=== PATIENT | male | born 1960 | race Caucasian/White ===

== ENCOUNTER 2024-03-07 13:32 | Emergency (ER) | payer OTHER, BC, SELFPAY ==
[2024-03-07 13:33] VITALS: BMI 25.7
[2024-03-07 14:05] VITALS: BP 135/90; PULSE 85; RESP 18; TEMP 36.6; O2SAT 97
--- NOTE | 2024-03-07 14:11 | XR_ITS ---
Examination: Lumbar spine 3 views Technique one AP lateral coned lateral lower lumbar spine 3 views Exam date and time: March 07, 2024 1424 hours INDICATIONS: Low back pain beginning 2 weeks ago. FINDINGS: Adequate alignment lumbar vertebral bodies No lumbar fracture Moderate disc narrowing L3-L4, advanced disc narrowing L4-L5, L5-S1 IMPRESSION: Advanced degenerative disc disease L4-L5, L5-S1
--- NOTE | 2024-03-07 14:12 | EDNOTE_ITS ---
ED Back Injury Pain RME/HPI General Chief Complaint: Back Pain/Injury Stated Complaint: Back pain 10/10 x 1 week Time Seen by Provider: 03/07/24 13:58 Arrival date/time: 03/07/24 13:32 RME / HPI RME / HPI Narrative: 64-year-old male patient regarding low back pain. Said ongoing for the last 1 week, described as sharp pain, severity 10 out of 10 worse with sudden positional change. Patient denies any dysuria denies any fever denies any trauma denies any fall. Denies any saddle anesthesia. Denies any urinary incontinence denies any bowel incontinence. The showed me her urinalysis results and worried that patient is also having Shigella. She wanted me to look at her urinalysis when she was here last January. No medication was taken prior to arrival. Related Data Previous Rx's ?Medication ?Instructions ?Recorded diphenhydramine HCl 25 mg capsule 25 mg PO QID PRN itching #20 caps 07/14/19 (Benadryl) epinephrine 0.3 mg/0.3 mL 0.3 ml subcut .once PRN 07/14/19 injection, auto-injector hypersensitivity reaction #2 ea famotidine 20 mg tablet 20 mg PO BID #10 tabs 07/14/19 prednisone 50 mg tablet 60 mg (1.2 x 50 mg) PO QDAY #5 tabs 07/14/19 ibuprofen 800 mg tablet 800 mg PO TID PRN pain #30 tabs 03/07/24 methocarbamol 750 mg tablet 750 mg PO TID PRN pain #30 tabs 03/07/24 Allergies Allergy/AdvReac Type Severity Reaction Status Date / Time bee venom protein (honey bee) Allergy Severe Anaphylaxis Verified 08/06/21 11:12 Review of Systems Review of Systems Narrative Review of Systems: Review of system reviewed and within normal limits except mentioned in HPI ED Exam Narrative Physical exam: VITAL SIGNS: Reviewed. GENERAL APPEARANCE: Alert and interactive, follows commands, no acute distress, HEAD AND FACE: Non-traumatic. ENT: PERRL, pink conjunctivitis, eyelid no trauma, Mucous membrane moist. NECK: Supple, nontender, no nuchal rigidity. CHEST: No tenderness, no crepitus, no paradoxical movement, no retractions. LUNGS: Clear, well ventilated, symmetric, no rales, no wheezing, no ronchi, no stridor, good breath sounds bilaterally. HEART: Regular rate, regular rhythm, no murmur, no gallops. ABDOMEN: Soft, positive bowel sounds, nondistended, no guarding, nontender, no rebound, no masses, RECTAL: Deferred. GENITAL: Deferred. NEUROLOGICAL: Gross motor function intact sensory function intact, Appropriate for age. MUSCULOSKELETAL: low back tenderness, full range of motion. EXTREMITIES: Nontender, full range of motion. SKIN: Color pink, dry, no rash, no lacerations, no abrasions, no contusions. LYMPHATICS: Deferred. Course Quality Measures none Orders Category Date Time Status XR lumbar spine 2-3V Stat Exams 03/07/24 14:11 Completed UA, C/S IF [Urinalysis, C/S if Indicated] Stat Lab 03/07/24 14:56 Completed Ketorolac Inj [Toradol Inj] Med 03/07/24 14:11 Discontinued 30 mg IM X1 ONE methocarbamoL [Robaxin] Med 03/07/24 14:11 Discontinued 500 mg PO X1 ONE Vital Signs Vital signs: Vital Signs Temperature 98 F 03/07/24 14:05 Pulse Rate 85 03/07/24 14:05 Respiratory Rate 18 03/07/24 14:05 Blood Pressure 135/90 H 03/07/24 14:05 Pulse Oximetry (%) 97 03/07/24 14:05 Oxygen Delivery Method Room Air 03/07/24 14:05 Back Pain / Injury MDM Narrative MDM Narrative:: 64-year-old male patient regarding low back pain. Said ongoing for the last 1 week, described as sharp pain, severity 10 out of 10 worse with sudden p ositional change. Patient denies any dysuria denies any fever denies any trauma denies any fall. Denies any saddle anesthesia. Denies any urinary incontinence denies any bowel incontinence. The showed me her urinalysis results and worried that patient is also having Shigella. She wanted me to look at her urinalysis when she was here last January. No medication was taken prior to arrival. Urinalysis no UTI. X-ray of the lumbar spine, came back with degenerative disc disease of the lumbar spine otherwise unremarkable. Results discussed with the patient and family. Patient was given Toradol and Robaxin with good relief of pain. Patient appears nontoxic and hemodynamically stable. Patient discharged home and instructed to follow-up with primary care provider in 24 to 48 hours and asked for referral to spine surgeon. Instructed to return to the emergency department immediately if worsening of symptoms Patient data External records reviewed:: None Clinical information provided by:: none Social determinants that could affect healthcare access:: none Patient has the following chronic illnesses:: None How is presenting disease/condition affected by chronic disease/condition?: no chronic disease Evaluation data The following diagnostics were reviewed and interpreted by me:: lab results and radiology exam(s) Lab and/or radiology exams considered but not ordered:: None Interpretation Summary: X-ray of the lumbar spine showed degenerative disc disease of the lumbar spine, urinalysis no UTI. Medications / Prescriptions Medications or Prescriptions considered but not ordered:: None Medication administrations:: Medication Administration History Discontinued Medications Ketorolac Tromethamine (Ketorolac Inj 60 Mg/2 Ml Vial) 30 mg IM X1 ONE Stop: 03/07/24 14:12 Last Admin: 03/07/24 15:04 Dose: 30 mg Documented By: Methocarbamol (Methocarbamol 500 Mg Tablet) 500 mg PO X1 ONE Stop: 03/07/24 14:12 Last Admin: 03/07/24 15:04 Dose: 500 mg Documented By: Toradol and Robaxin Consultations Consultation(s) initiated? (list below): No Diagnosis Differential diagnosis back pain/injury: sciatica and other (Low back pain, degenerative disease lumbar spine) Most likely diagnosis given after review of the tests above:: Degenerative disease lumbar spine Admission Indicated Admission indicated?: not indicated Explain why admission is indicated or not indicated:: None Admission Request Was there a request for admission?: No Disposition Plan Disposition Plan: Discharge Discharge Attestation Discharge Attestation: The patient and all family members were given an opportunity to ask questions and understood the discharge instructions. Discharge instructions specifically effects, indications for sooner follow up or return to the emergency department, and the expected course of current diagnosis. Patient condition: Stable Discharge Plan Plan Patient Disposition: HOME (Self Care) Disposition Comment: Stable Prescriptions/Referrals Prescriptions/Med Rec: New ibuprofen 800 mg tablet 800 mg PO TID PRN (Reason: pain) Qty: 30 0RF methocarbamol 750 mg tablet 750 mg PO TID PRN (Reason: pain) Qty: 30 0RF No Action prednisone 50 mg tablet 60 mg PO QDAY Qty: 5 0RF famotidine 20 mg tablet 20 mg PO BID Qty: 10 0RF epinephrine 0.3 mg/0.3 mL auto-injector 0.3 ml SC .once PRN (Reason: hypersensitivity reaction) Qty: 2 1RF Rx Instructions: As directed diphenhydramine HCl [Benadryl] 25 mg capsule 25 mg PO QID PRN (Reason: itching) Qty: 20 0RF Rx Instructions: No swimming, alcohol, or mechanical use while on Benadryl. 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 You are stable for discharged . You are advised to: Follow-up with your PCP in 1 to 2 days and asked for referral to spine surgeon Return to ED for worsening of symptoms Increase oral fluids Take medication as prescribed Print Language: Salvadorean Stand Alone Forms: Silvia Award Info., Patient Portal Info Letter PA/[employer] Supervising Physician JAMES/ANTWAN Supervising Physician: MD Gloria
[2024-03-07] MEDS: methocarbamoL 500 MG TABLET PO (15:04)
[2024-03-07] MEDS: KETOROLAC INJ 60 MG/2 ML VIAL 30 MG IM (15:04)
[2024-03-07 15:12] LABS: Collection Type, Urine Clean Catch
[2024-03-07 15:22] LABS: Bilirubin,Urine Negative (Negative); Blood,Urine Negative (Negative); Clarity,Urine Clear (Clear/Hazy); Color,Urine Yellow (Lt Yel-Yel); Culture Indicated,Urine Not Indicated; Glucose, Urine Negative (Negative); Ketones,Urine Trace (Negative); Leukocyte Esterase,Urine Negative (Negative); Nitrite,Urine Negative (Negative); Protein,Urine 1+ (Neg - Trace); RBC,Urine 2 /hpf (0-3); Specific Gravity,Urine 1.039 (1.001-1.035); Squamous Epithelial Cell,Urine < 1 /hpf (0-5); WBC,Urine 1 /hpf (0-5)
[2024-03-07 19:24] VITALS: BP 130/88; PULSE 78; RESP 18; TEMP 36.8; O2SAT 98
== END 2024-03-07 19:26 | disposition home or self-care (01) ==
PROVIDERS: Nurse Practitioner Family; Emergency Provider Emergency Medicine
DX: M51.360 Other intervertebral disc degeneration, lumbar region with discogenic back pain only (principal)
CPT/HCPCS: 72100; 81001; 96372; 99283; J1885

== ENCOUNTER → 2024-04-11 | Outpatient (CLI) | payer OTHER, BC, SELFPAY ==
[2024-04-11 15:21] LABS: Basophils # (Auto) 0.1 Thou/mm3 (0.0-0.2); Basophils % (Auto) 1 % (0-2.5); Eosinophils # (Auto) 0.2 Thou/mm3 (0.0-0.5); Eosinophils % (Auto) 3 % (0-10); Hematocrit 47.1 % (41.0-53.0); Hemoglobin 15.7 g/dL (13.5-16.0); Immature Granulocytes % (Auto) 0 % (0-0); Immature Granulocytes Auto 0.02 Thou/mm3 (0.00-0.00); Lymphocytes # (Auto) 1.8 Thou/mm3 (1.0-4.8); Lymphocytes % (Auto) 29 % (10-50); Mean Corpuscular HGB Conc 33.3 g/dl (31.0-37.0); Mean Corpuscular Hemoglobin 31.2 pg (25.0-35.0); Mean Corpuscular Volume 94 fL (80-100); Monocytes # (Auto) 0.6 Thou/mm3 (0.0-0.8); Monocytes % (Auto) 11 % (0-12); Neutrophils # (Auto) 3.4 Thou/mm3 (1.8-7.7); Neutrophils % (Auto) 56 % (37-80); Nucleated Red Blood Cell % 0 /100 WBC (0); Platelet Count 313 Thou/mm3 (140-440); RDW Standard Deviation 43.1 fL (35.1-43.9); Red Blood Count 5.03 Miln/mm3 (4.50-5.90); White Blood Count 6.1 Thou/mm3 (3.8-10.6)
[2024-04-11 15:29] LABS: Glucose Estimated Average 94 mg/dL (80-131); Hemoglobin A1C 4.9 % Hgb (4.8-6.0)
[2024-04-11 15:44] LABS: Alanine Aminotransferase 21 U/L (10-49); Albumin, Serum 4.3 gm/dL (3.4-4.8); Albumin/Globulin Ratio 1.6 (1.2-2.2); Alkaline Phosphatase 26 U/L (46-116); Anion Gap 5 (7-16); Aspartate Amino Transferase 14 U/L (0-34); BUN/Creatinine Ratio 14 Ratio (12-20); Blood Urea Nitrogen 14 mg/dL (9-23); Calcium 9.7 mg/dL (8.3-10.6); Calcium (Corrected) 9.7 mg/dL (8.5-10.1); Carbon Dioxide 28.6 mMol/L (20.0-31.0); Cardiac Risk Estimate 3.6 RATIO (4.0-6.7); Chloride 104 mMol/L (98-107); Cholesterol 191 mg/dL (132-200); Globulin 2.7 gm/dL (2.3-3.5); Glucose 94 mg/dL (74-106); HDL Cholesterol 53 mg/dL (40-60); LDL Cholesterol,Calculated 121 mg/dL (0-130); Osmolality,Calculated 276 (275-295); Potassium 4.5 mMol/L (3.4-5.1); Sodium 138 mMol/L (136-145); Triglycerides 83 mg/dL (30-150); eGFR > 60 See Note
[2024-04-11 15:54] LABS: Collection Type, Urine Clean Catch
[2024-04-11 17:09] LABS: Bilirubin,Urine Negative (Negative); Blood,Urine Negative (Negative); Clarity,Urine Clear (Clear/Hazy); Color,Urine Lt-Yellow (Lt Yel-Yel); Glucose, Urine Negative (Negative); Ketones,Urine Negative (Negative); Leukocyte Esterase,Urine Negative (Negative); Nitrite,Urine Negative (Negative); Protein,Urine Negative (Neg - Trace); RBC,Urine 2 /hpf (0-3); Specific Gravity,Urine 1.018 (1.001-1.035); Squamous Epithelial Cell,Urine < 1 /hpf (0-5); Urobilinogen,Urine Negative mg/dL (0.0-1.0); WBC,Urine 1 /hpf (0-5)
== END | disposition home or self-care (01) ==
LOC: COPL 14:41
PROVIDERS: PCP Family Medicine; Referring Provider Family Medicine; Visit Provider Family Medicine
DX: Z00.00 Encounter for general adult medical examination without abnormal findings (principal); R03.0 Elevated blood-pressure reading, without diagnosis of hypertension; Z83.3 Family history of diabetes mellitus
CPT/HCPCS: 36415; 80053; 80061; 81001; 83036; 84443; 85025

== ENCOUNTER → 2024-04-28 | Outpatient (CLI) | payer OTHER, BC, SELFPAY ==
--- NOTE | 2024-04-28 15:50 | XR_ITS ---
Examination: Knee, left , 3 views Technique: Knee AP, lateral, oblique 3 views Date and time of exam: April 28, 2024 1651 hrs. Comparison May 03, 2015 Indication: Left knee pain 3 years. Findings: Moderate to advanced tricompartment osteoarthritis, severe narrowing medial joint space 33 mm ossified suprapatellar joint body No fracture No patellar dislocation Impression: Moderate to advanced tricompartment osteoarthritis
== END | disposition home or self-care (01) ==
LOC: CDIM 15:46
PROVIDERS: Referring Provider Family Medicine; Visit Provider Family Medicine
DX: M17.12 Unilateral primary osteoarthritis, left knee (principal); G89.29 Other chronic pain
CPT/HCPCS: 73562

== ENCOUNTER → 2024-07-31 | Outpatient (CLI) | payer BC, SELFPAY ==
--- NOTE | 2024-07-31 15:27 | XR_ITS ---
Examination: Shoulder,right, 3 views Technique: Shoulder AP internal rotation, AP external rotation, Y view shoulder, 3 views Exam date and time :July 31, 2024 1535 hours INDICATIONS: Right shoulder pain beginning 2 years ago FINDINGS: Mild narrowing glenohumeral joint No shoulder fracture or dislocation IMPRESSION: Mild narrowing glenohumeral joint
== END | disposition home or self-care (01) ==
PROVIDERS: PCP Family Medicine; Referring Provider Family Medicine; Visit Provider Family Medicine
DX: M25.811 Other specified joint disorders, right shoulder (principal)
CPT/HCPCS: 73030